=== PATIENT | female | born 1985 ===

== ENCOUNTER 2016-05-04 16:29 | Inpatient (IN) | payer MEDICAID ==
[2016-05-04] MEDS ORDERED: NS 1,000 ML IV ONE (16:33)
[2016-05-04] MEDS ORDERED: ONDANSETRON 4 MG/2 ML VIAL IVP ONE (16:33)
[2016-05-04] MEDS ORDERED: KETOROLAC 30 MG/1 ML SDV IVP ONE (16:33)
[2016-05-04 16:52] LABS: % IMMATURE GRANULYOCYTES 0.5 % (0.0-1.1); ABSOLUTE IMMATURE GRANULOCYTES 0.07 10^3/uL (0.00-0.10); ADD DIFF? NO; ADD MORPH? NO; ADD SCAN? NO; ATYPICAL LYMPHOCYTE FLAG 0 (0-99); FRAGMENT RBC FLAG 0 (0-99); HEMATOCRIT 43.7 % (38.0-47.0); HEMOGLOBIN 15.3 g/dL (12.6-16.3); LEFT SHIFT FLG 0 (0-99); LIPEMIA HEMOLYSIS FLAG 90 (0-99); MEAN CELL VOLUME 88.5 fL (81.5-99.8); MEAN PLATELET VOLUME 11.3 fL (8.7-11.7); PLATELET CLUMPS FLAG 0 (0-99); PLATELET COUNT 233 10^3/uL (150-400); RED BLOOD CELL COUNT 4.94 10^6/uL (4.18-5.33); RED CELL DISTRIBUTION WIDTH 14.3 % (11.5-15.2)
--- NOTE | 2016-05-04 17:09 | EDPHY ---
H & P Stated Complaint: Vaginal Bleed, abd pain HPI/ROS: CHIEF COMPLAINT: Vaginal bleeding and pain HISTORY OF PRESENT ILLNESS: The patient is a 30-year-old homeless woman who called EMS for vaginal bleeding and cramping. She told them that she has these cramps every month. She recently moved from [place]. She was screaming and yelling and would not take her clothes off when she got here. She would not moved to the other bed. Eventually we were able to calm her down and talk her into moving. She would not provide any history. REVIEW OF SYSTEMS: Constitutional: denies: chills, fever, recent illness, recent injury EENTM: denies: blurred vision, double vision, nose congestion Respiratory: denies: cough, shortness of breath Cardiac: denies: chest pain, irregular heart rate, lightheadedness, palpitations Gastrointestinal/Abdominal: denies: abdominal pain, diarrhea, nausea, vomiting, blood streaked stools Genitourinary: Bleeding, pelvic pain Musculoskeletal: denies: joint pain, muscle pain Skin: denies: lesions, rash, jaundice, bruising Neurological: denies: headache, numbness, paresthesia, tingling, dizziness, weakness Hematologic/Lymphatic: denies: blood clots, easy bleeding, easy bruising Immunologic/allergic: denies: HIV/AIDS, transplant EXAM: GENERAL: Well-appearing, well-nourished and in no acute distress. HEAD: Atraumatic, normocephalic. EYES: Pupils equal round and reactive to light, extraocular movements intact, sclera anicteric, conjunctiva are normal. ENT: TMs normal, nares patent, oropharynx clear without exudates. Moist mucous membranes. NECK: Normal range of motion, supple without lymphadenopathy or JVD. LUNGS: Breath sounds clear to auscultation bilaterally and equal. No wheezes rales or rhonchi. HEART: Regular rate and rhythm without murmurs, rubs or gallops. ABDOMEN: Distended above the umbilicus BACK: No CVA tenderness, no spinal tenderness, step-offs or deformities EXTREMITIES: Normal range of motion, no pitting or edema. No clubbing or cyanosis. NEUROLOGICAL: Cranial nerves II through XII grossly intact. Normal speech, normal gait. 5/5 strength, normal movement in all extremities, normal sensation PSYCH: Normal mood, normal affect. SKIN: Warm, dry, normal turgor, no visible rashes or lesions. Source: Patient, EMS Exam Limitations: No limitations - Personal History LMP (Females 10-55): Now Current Tetanus/Diphtheria Vaccine: Unsure Current Tetanus Diphtheria and Acellular Pertussis (TDAP): Unsure - Medical/Surgical History Hx Asthma: No Hx Chronic Respiratory Disease: No Hx Diabetes: No Hx Cardiac Disease: No Hx Renal Disease: No Hx Cirrhosis: No Hx Alcoholism: No Hx HIV/AIDS: No Hx Splenectomy or Spleen Trauma: No Other PMH: bipolar, schizophrenia - Family History Significant Family History: No pertinent family hx - Social History Smoking Status: Current every day smoker Alcohol Use: Sober Drug Use: None Constitutional: Initial Vital Signs Temperature (C) 36.4 C 05/04/16 16:29 Heart Rate 70 05/04/16 16:29 Respiratory Rate 24 H 05/04/16 16:29 Blood Pressure 136/82 H 05/04/16 16:29 O2 Sat (%) 96 05/04/16 16:29 O2 Delivery Mode Room Air Allergies/Adverse Reactions: No Known Allergies Allergy (Unverified 07/18/13 16:09) Home Medications: Medication Instructions Recorded Amoxicillin/Clavulanate Pot 875 mg PO BID #14 tab 09/21/13 [Augmentin 875 MG TAB (RX)] Hydrocodone/APAP 5/325 [[place] 1 each PO Q4-6PRN PRN #14 tab 09/21/13 5/325 (*)] Medical Decision Making Procedures: Delivery: Patient was delivered EN route to the OBGYN floor. This was done successfully by nursing staff and myself. The baby is well appearing and has an of 9. Crying and breathing vigorously. ED Course/Re-evaluation: The patient did not tell paramedics or us initially that she was . She complained of bleeding that she said was typical of her periods. She would not cooperate with exam initially. I left to order her pain medication and lab work. Nursing staff told me that she made a comment to them while they were starting the IV about and get this baby out of me. They asked me to come to the room. On my arrival I placed an ultrasound on her abdomen and saw a fetus in her uterus. At this time she admitted to not having a period for over 7 months. She states the last time she had sex with 7 months ago but that they use a condom. Eventually we are able to get her to open her legs at which time there was a head . We transferred her rapidly to the OBGYN floor. She began having another contraction in the elevator and began pushing. She delivered the head. Suzan the ER/OBGYN was were with us and was standing at the foot of the bed. She un wrapped the umbilical cord. It was wrapped around the child's neck once and then the baby came the rest of the way out. She cried almost immediately. It was stimulated and dried and placed on the mom's abdomen while in route to the OBGYN floor over a med by OBGYN nurse' s. The baby had clear breath sounds and of 9. Patient felt completely better. She was still unsure about the term of the baby for how she became . The baby appears full-term clinically. She had not received any care. Differential Diagnosis: Partial list of the Differential diagnosis considered include but were not limited to; vaginal bleeding, menses, ectopic, and although unlikely based on the history and physical exam, I also considered hemorrhage, infection , PID. - Data Points Laboratory Results: Laboratory Results 05/04/16 16:40 05/04/16 16:40 05/04/16 16:40 WBC 15.01 H 10^3/uL (3.80-9.50) RBC 4.94 10^6/uL (4.18-5.33) Hgb 15.3 g/dL (12.6-16.3) Hct 43.7 % (38.0-47.0) MCV 88.5 fL (81.5-99.8) MCH 31.0 pg (27.9-34.1) MCHC 35.0 g/dL (32.4-36.7) RDW 14.3 % (11.5-15.2) Plt Count 233 10^3/uL (150-400) MPV 11.3 fL (8.7-11.7) Neut % (Auto) 88.9 H % (39.3-74.2) Lymph % (Auto) 7.4 L % (15.0-45.0) [place] % (Auto) 2.9 L % (4.5-13.0) Eos % (Auto) 0.0 L % (0.6-7.6) Baso % (Auto) 0.3 % (0.3-1.7) Nucleat RBC Rel Count 0.0 % (0.0-0.2) Absolute Neuts (auto) 13.36 H 10^3/uL (1.70-6.50) Absolute Lymphs (auto) 1.11 10^3/uL (1.00-3.00) Absolute Monos (auto) 0.43 10^3/uL (0.30-0.80) Absolute Eos (auto) 0.00 L 10^3/uL (0.03-0.40) Absolute Basos (auto) 0.04 10^3/uL (0.02-0.10) Absolute Nucleated RBC 0.00 10^3/uL (0-0.01) Immature Gran % 0.5 % (0.0-1.1) Immature Gran # 0.07 10^3/uL (0.00-0.10) Sodium 137 mEq/L (134-144) Potassium 4.2 mEq/L (3.5-5.2) Chloride 104 mEq/L (97-110) Carbon Dioxide 18 L mEq/l (22-31) Anion Gap 15 mEq/L (8-16) BUN 12 mg/dL (7-23) Creatinine 0.6 mg/dL (0.6-1.0) Estimated GFR > 60 Glucose 122 H mg/dL (70-100) Calcium 9.9 mg/dL (8.5-10.4) Beta HCG, Qual POSITIVE Medications Given: Discontinued Medications Sodium Chloride (Ns) 1,000 mls @ 0 mls/hr IV ONCE ONE PRN Reason: Wide Open Stop: 05/04/16 16:34 Last Admin: 05/04/16 16:51 Dose: 1,000 mls Ketorolac Tromethamine (Toradol) 30 mg IVP EDNOW ONE Stop: 05/04/16 16:34 Last Admin: 05/04/16 16:50 Dose: 30 mg Ondansetron HCl (Zofran) 4 mg IVP EDNOW ONE Stop: 05/04/16 16:34 Last Admin: 05/04/16 16:51 Dose: 4 mg Departure - Departure Disposition: [facility] Inpatient Acute Clinical Impression: Delivery normal Condition: Fair
[2016-05-04 17:20] LABS: ANION GAP 15 mEq/L (8-16); CALCIUM 9.9 mg/dL (8.5-10.4); CARBON DIOXIDE 18 mEq/l (22-31); CHLORIDE 104 mEq/L (97-110); CREATININE 0.6 mg/dL (0.6-1.0); GLOMERULAR FILTRATION RATE > 60; GLUCOSE 122 mg/dL (70-100); POTASSIUM 4.2 mEq/L (3.5-5.2); SODIUM 137 mEq/L (134-144)
--- NOTE | 2016-05-04 17:34 | SOAPPROG ---
SOAP Progress Note Assessment/Plan: Assessment: Well appearing, term female . Plan: Well nursery care. Full exam and plan of care per PCP. Recommend HBIG and Hep. B vaccination if maternal status remains unavailable. Routine observation for unknown GBS status. 05/04/16 17:34 Subjective: MEETING MANAGER Delivery Note: Called secondary to precipitous delivery. AIDEE is a 30 y.o., unknown. AIDEE is homeless and did not receive care. Per maternal report, she ruptured 05/03/16 at approximately 12noon. occurred in the elevator on the way to the labor and delivery unit. Upon arrival, the infant was pink and nondistressed skin to skin on the mother. Infant was brought to warmer. Gross exam was WNL and consistent with 38+ week female infant. Objective: Vital Signs Temp Pulse Resp BP Pulse Ox 36.4 C 70 24 H 136/82 H 96 05/04/16 16:29 05/04/16 16:29 05/04/16 16:29 05/04/16 16:29 05/04/16 16:29 05/03/16 05/04/16 05/05/16 05:59 05:59 05:59 Intake Total 100 Balance 100 ICD10 Worksheet Patient Problems: Problems Problem Status Diagnosed Delivery normal Acute Term of female Acute - ICD10 Problem Qualifiers (1) Term of female
[2016-05-04] MEDS ORDERED: SIMETHICONE 80 MG TAB CHEW PO PRN (18:12)
[2016-05-04] MEDS ORDERED: HYDROCORTISONE 0.5% CREAM TP PRN (18:12)
[2016-05-04] MEDS ORDERED: HYDROCODONE/APAP 5/325 TAB PO PRN (18:12)
[2016-05-04] MEDS ORDERED: ACETAMINOPHEN 325 MG TAB PO PRN (18:12)
--- NOTE | 2016-05-04 18:31 | OBPROC ---
- Labor and Delivery Onset of Contractions Date: 05/04/16 Onset of Contractions Time: 00:00 Onset of Contractions Type: Spontaneous Rupture of Membranes Date: 05/04/16 Rupture of Membranes Time: 02:00 Rupture of Membranes Type: Spontaneous Amniotic Fluid Color: Clear Delivery Type: Spontaneous Placenta Delivery Date: 05/04/16 Placenta Delivery Time: 17:01 Episiotomy/Laceration: Periurethral (bilateral periurethral/ l labial no repair needed) EBL: 400 Complications: None - Medications Labor Augmentation/Induction Meds Used: None - [place] Info Infant A Delivery Date: 05/04/16 Delivery Time: 16:53 Sex of Infant: Female Score (1 Min): 8 Score (5 Min): 9
[2016-05-04] MEDS ORDERED: OXYTOCIN 10 UNIT/ML VIAL ONE (18:41)
[2016-05-04] MEDS ORDERED: FLU VACC QS 2016-17(3-64YR)/PF 0.5 ML SYR (FLUARIX QUAD) IM ONE ×2 (19:12→22:17)
[2016-05-04] MEDS ORDERED: TDAP ADULT 0.5 ML VIAL (BOOSTRIX) IM ONE ×2 (19:26→22:30)
--- NOTE | 2016-05-04 19:51 | GHP ---
[f rep st] HISTORY AND PHYSICAL DATE OF ADMISSION: 05/04/2016 HISTORY OF PRESENT ILLNESS: The patient is a 30-year-old, 1, para 0, with no care who comes into the emergency room of [facility] with complaint of abdominal pain. Quickly ER assessed that the patient was and brought the patient to Labor and Delivery by elevator. The patient delivered in the elevator before making it to Labor and Delivery. The patient states that she started andrea at midnight on 05/04/2016. States ruptured her membranes at 0200 on 05/04/2016. States started feeling greater pain at 2 o'clock this afternoon on 05/04/2016. The patient denies when questioned any awareness that she was . Denies any care with the . MEDICAL HISTORY: Patient states that she is bipolar as well as schizophrenic. Hepatitis positive, but unknown type. MEDICATIONS: Patient states not taking any medications at this time. ALLERGIES: NKDA. SURGICAL HISTORY: Denies. GYNECOLOGICAL HISTORY: Denies. Denies any previous history as well as any knowledge of this . PHYSICAL EXAMINATION: GENERAL: Patient is awake, alert, oriented x3. LUNGS: Clear bilaterally. ABDOMEN: Bowel sounds positive in all 4 quadrants. Abdomen is soft on palpation. Fundus is firm at the umbilicus. PELVIC: Assessment of the perineum after delivery of the placenta and the baby almost 30 minutes after delivery shows bilateral periurethrals as well as a left labial that are hemostatic. NEURO: DTRs are 1+ bilaterally. Homans signs are negative bilaterally. Clonus is negative bilaterally. PLAN OF CARE: labs. Clay Maker consult; patient is homeless and lives in a care home. There is a need for social work assessment and need for resources to support mom and baby.. /[id number]/MODL MTDD
[2016-05-04] MEDS: IBUPROFEN 600 MG TAB PO PRN (22:43)
[2016-05-04] MEDS: DOCUSATE SODIUM 100 MG CAP PO PRN (22:44)
[2016-05-04 23:43] LABS: COLOR RED; LEUKOCYTE ESTERASE,URINE 2+ (NEGATIVE); NITRITE,URINE NEGATIVE (NEGATIVE)
[2016-05-04 23:54] LABS: MUCUS 2+ /lpf (NONE-1+); RBC,URINE 50-182 /hpf (0-3); WBC,URINE 50-182 /hpf (0-3)
[2016-05-05 00:42] VITALS: RESP 16
[2016-05-05] MEDS: IBUPROFEN 600 MG TAB PO PRN ×2 (08:08→15:07)
[2016-05-05] MEDS: DOCUSATE SODIUM 100 MG CAP PO PRN (08:09)
--- NOTE | 2016-05-05 08:18 | SOAPPROG ---
SOAP Progress Note Assessment/Plan: Assessment: ppd 1 s/p homeless, no care - labs pending. term doing well - BF well smoker - encouraged the patient to quit h/o bipolar/schizophrenia - no meds appropriate with baby - caring Plan: rn social services consult await labs and urine culture 05/05/16 08:15 05/05/16 08:22 Subjective: Pt doing well. states mild cramps but controlled with ibuprofen. states bleeding like a period. baby has been BF well. no nausea and ashley reg diet. hydrating. reports she's very tired with baby up about every 1-2 hours. Pt admits to thinking she was but wasn't sure. Living at a homeless assisted. Reports she's in probation, and hasn't been drinking or pot since the probation. Denies heavy hx of either. Reports smoking tob 1/2 ppd. Objective: Vital Signs Temp Pulse Resp BP Pulse Ox 37.1 C 73 16 118/56 L 96 05/05/16 00:20 05/05/16 00:20 05/05/16 00:20 05/05/16 00:20 05/04/16 16:29 Laboratory Results 05/05/16 03:15 05/04/16 05/05/16 05/06/16 05:59 05:59 05:59 Intake Total 100 Balance 100 Physical Exam - Physical Exam General Appearance: WD/WN Abdomen: non-tender, soft, other (FF at umb) Pelvic Exam: vaginal bleeding (normal lochia) Extremities: non-tender, pedal edema (minimal) Neuro/Psych: normal mood/affect ICD10 Worksheet Patient Problems: Problems Problem Status Diagnosed Delivery normal Acute Term of female Acute
[2016-05-05 14:48] LABS: PHENCYCLIDINE URINE BCH < 6 ng/ml (NEGATIVE); TETRAHYDROCANNABINOL URINE < 5 ng/mL (NEGATIVE)
[2016-05-05 14:53] LABS: PHENCYCLIDINE URINE BCH NEGATIVE (NEGATIVE); TETRAHYDROCANNABINOL URINE NEGATIVE (NEGATIVE)
[2016-05-06] MEDS: IBUPROFEN 600 MG TAB PO PRN ×3 (06:30→18:45)
--- NOTE | 2016-05-06 08:03 | SOAPPROG ---
SOAP Progress Note Assessment/Plan: Assessment:ff@u scant rubra lochia perineum approximated minimal swelling well Plan:expectant management pp day2 05/06/16 08:02 Subjective: Doing well. Denies difficulties Objective: Vital Signs Temp Pulse Resp BP Pulse Ox 36.9 C 72 16 113/74 95 05/05/16 22:15 05/05/16 22:15 05/05/16 22:15 05/05/16 22:15 05/05/16 22:15 Laboratory Results 05/05/16 03:15 05/05/16 05/06/16 05/07/16 05:59 05:59 05:59 Intake Total 100 1999 Balance 100 2000 - Time Spent With Patient Time Spent With Patient: 15 minutes ICD10 Worksheet Patient Problems: Problems Problem Status Diagnosed Delivery normal Acute Term of female Acute
[2016-05-06 15:03] LABS: CHLAMYDIA AMPLIFICATION GENPRB NEGATIVE (NEGATIVE)
[2016-05-06 20:40] VITALS: O2SAT 97
--- NOTE | 2016-05-07 08:46 | SOAPPROG ---
SOAP Progress Note Assessment/Plan: Assessment: ppd 3 s/p homeless, no care - labs negative term doing well - BF well smoker - encouraged the patient to quit h/o bipolar/schizophrenia - no meds appropriate with baby - caring baby to be taken to foster care per CPS due to no place for mom and baby together Plan: social work administrator/ CPS consult D/C home 05/05/16 08:15 05/05/16 08:22 05/07/16 08:44 Subjective: Pt has been sleeping soundly - upon awakening - denies complaints. Has had success with BF but has also given bottles at noc. Bld is light. ibu managing pain. urinating fine. Objective: Vital Signs Temp Pulse Resp BP Pulse Ox 36.9 C 77 16 131/75 H 97 05/05/16 22:15 05/06/16 20:25 05/06/16 20:25 05/06/16 20:25 05/06/16 20:25 Laboratory Results 05/05/16 03:15 05/06/16 05/07/16 05/08/16 05:59 05:59 05:59 Intake Total 1999 Balance 1999 Physical Exam - Physical Exam General Appearance: WD/WN Abdomen: non-tender, soft, other (FF at umb -1) Pelvic Exam: vaginal bleeding (normal lochia) Extremities: non-tender, pedal edema (minimal) Neuro/Psych: normal mood/affect ICD10 Worksheet Patient Problems: Problems Problem Status Diagnosed Delivery normal Acute Term of female Acute
[2016-05-07] MEDS: IBUPROFEN 600 MG TAB PO PRN (11:40)
[2016-05-07 13:54] VITALS: BP 137/80; PULSE 93; TEMP 97.4
[2016-05-08 15:07] LABS: CHLAMYDIA PNEUMONIAE IGG <1:64 titer (<1:64); CHLAMYDIA PNEUMONIAE IGM <1:10 titer (<1:10); CHLAMYDIA PSITTACI IGG <1:64 titer (<1:64); CHLAMYDIA PSITTACI IGM <1:10 titer (<1:10); CHLAMYDIA TRACHOMATIS IGG <1:64 titer (<1:64); CHLAMYDIA TRACHOMATIS IGM <1:10 titer (<1:10)
== END 2016-05-07 11:30 | disposition home or self-care (01) | DRG 775 ==
LOC: EDUNIT# → FLD 17:00 → FOB 05-05 13:49
PROVIDERS: ADMIT Advanced Practice Midwife; ATTEND Advanced Practice Midwife
PROC: 10E0XZZ Delivery of Products of Conception, External Approach (ICD-10-PCS; principal; 2016-05-04)
DX: O99.343 Other mental disorders complicating pregnancy, third trimester (principal); Z37.0 Single live birth; O99.333 Smoking (tobacco) complicating pregnancy, third trimester; Z59.0 Homelessness; O99.820 Streptococcus B carrier state complicating pregnancy; O71.82 Other specified trauma to perineum and vulva; F31.9 Bipolar disorder, unspecified; F20.9 Schizophrenia, unspecified; Z23 Encounter for immunization
CPT/HCPCS: 80307; 86631-90; 96374; G0008; G0480; J1885; J2405